=== PATIENT | male | born 1975 | race Caucasian/White ===

== ENCOUNTER 2019-05-09 04:13 | Inpatient (IN) | payer OTHER ==
[~2019-05-09] VITALS: Ht 180.3 cm; Wt 101.7 kg
[2019-05-09] MEDS ORDERED: CefTRIAXone 1 GM/DEXTROSE 50 ML IV ONE (04:30)
[2019-05-09] MEDS ORDERED: OCTREOTIDE ACETATE 100 MCG/ML VIAL IVP ONE (04:30)
[2019-05-09] MEDS ORDERED: PANTOPRAZOLE SODIUM 40 MG/VIAL IVP ONE (04:30)
[2019-05-09 04:41] LABS: GLUCOSE,POINT OF CARE 275 MG/DL (70-110)
[2019-05-09] MEDS ORDERED: FAMO20 PO (04:44)
[2019-05-09] MEDS ORDERED: FURO40I IM (04:44)
[2019-05-09] MEDS ORDERED: INSU100I26 IM (04:44)
[2019-05-09] MEDS ORDERED: GABA-531 PO (04:44)
[2019-05-09] MEDS ORDERED: PANT40TA25 PO (04:44)
[2019-05-09] MEDS ORDERED: FINA5TAB41 PO (04:44)
[2019-05-09] MEDS ORDERED: ATOR40TA28 PO (04:44)
[2019-05-09] MEDS ORDERED: METF-446 PO (04:44)
[2019-05-09] MEDS ORDERED: OMEP20 PO (04:44)
[2019-05-09] MEDS ORDERED: MIRT15 PO (04:44)
[2019-05-09] MEDS ORDERED: DOXE25 PO (04:44)
[2019-05-09] MEDS ORDERED: QUET200T PO (04:44)
[2019-05-09] MEDS ORDERED: RIVA20TA PO (04:44)
[2019-05-09] MEDS ORDERED: ACYC200C PO (04:44)
[2019-05-09] MEDS ORDERED: CETI10TA59 PO (04:44)
[2019-05-09] MEDS ORDERED: MELO-107 PO (04:44)
[2019-05-09] MEDS ORDERED: EMPA25TA PO (04:44)
[2019-05-09] MEDS ORDERED: VENL-68 PO (04:44)
[2019-05-09] MEDS ORDERED: TRAZ150 PO (04:44)
[2019-05-09] MEDS ORDERED: PROP20TA18 PO (04:44)
[2019-05-09 04:59] LABS: BASOPHILS % (AUTO) 1.2 % (0.0-2.0); EOSINOPHILS % (AUTO) 0.7 % (1.0-6.0); HEMATOCRIT 41.3 % (41-53); HEMOGLOBIN 13.6 g/dL (13.5-17.5); LYMPHOCYTES # (AUTO) 3.7 K/uL (1.0-4.8); LYMPHOCYTES % (AUTO) 40.2 % (22.0-44.0); MEAN CORPUSCULAR HEMOGLOBIN 30.5 pg (26.0-34.0); MEAN CORPUSCULAR VOLUME 93 fL (80-100); MONOCYTES # (AUTO) 0.9 K/uL (0.1-1.0); MONOCYTES % (AUTO) 9.7 % (2.0-9.0); NEUTROPHILS # (AUTO) 4.5 K/uL (1.8-7.7); NEUTROPHILS % (AUTO) 48.2 % (40.0-70.0); PLATELET COUNT (AUTO) 280 K/uL (150-450); RED BLOOD CELL COUNT(AUTO) 4.47 MIL/uL (4.50-5.90); RED CELL DISTRIBUTION WIDTH 20.2 % (11.5-14.5)
[2019-05-09] MEDS ORDERED: PANTOPRAZOLE SODIUM 80 MG in SODIUM CHLORIDE 0.9% 100 ML IV SCH (05:00)
[2019-05-09] MEDS ORDERED: OCTREOTIDE ACETATE 500 MCG in DEXTROSE 5%-WATER 97.5 ML IV SCH (05:00)
[2019-05-09 05:08] LABS: APPEARANCE,URINE CLEAR (CLEAR); BILIRUBIN,URINE NEGATIVE (NEGATIVE); GLUCOSE, URINE (UA) >=1000 mg/dL (NEGATIVE); KETONES,URINE TRACE mg/dL (NEGATIVE); LEUKOCYTE ESTERASE ,URINE NEGATIVE (NEGATIVE); NITRATE,URINE NEGATIVE (NEGATIVE); OCCULT BLOOD,URINE NEGATIVE (NEGATIVE); PROTEIN,URINE NEGATIVE (NEGATIVE); UROBILINOGEN,URINE 0.2 mg/dL (<=1.0)
[2019-05-09 05:14] LABS: AMPHET/METH SCREEN,URINE NEGATIVE (NEGATIVE); BARBITURATE SCREEN, URINE NEGATIVE (NEGATIVE); BENZODIAZEPINES SCREEN,URINE NEGATIVE (NEGATIVE); CANNABINOID SCREEN,URINE NEGATIVE (NEGATIVE); COCAINE SCREEN,URINE NEGATIVE (NEGATIVE); METHADONE SCREEN, URINE NEGATIVE (NEGATIVE); OPIATE SCREEN,URINE NEGATIVE (NEGATIVE)
[2019-05-09 05:16] LABS: PHENCYCLIDINE SCREEN,URINE NEGATIVE (NEGATIVE)
[2019-05-09 05:21] LABS: PROTHROMBIN TIME 10.8 SEC (9.4-11.6)
[2019-05-09 05:22] LABS: CALCIUM, TOTAL 8.7 mg/dL (8.8-10.5); CREATININE 1.3 mg/dL (0.60-1.30); POTASSIUM 4.2 mmol/L (3.5-5.1)
[2019-05-09 05:25] LABS: BACTERIA,URINE None Seen /HPF (None Seen); RBC,URINE None Seen /HPF (0-2); SQUAMOUS EPITHELIAL CELL,UR Few /LPF (None Seen); WBC,URINE 0-2 /HPF (0-5)
[2019-05-09 05:28] LABS: ALBUMIN 3.4 g/dL (3.4-5.0); BILIRUBIN,TOTAL 0.5 mg/dL (0.1-1.0); TOTAL PROTEIN, SERUM 7.6 g/dL (6.4-8.2)
[2019-05-09] MEDS ORDERED: IOVERSOL 350 MG/ML 100 ML VIAL ONE (05:40)
[2019-05-09] MEDS ORDERED: SODIUM CHLORIDE 0.9% 1,000 ML IV ONE (05:45)
[2019-05-09] MEDS ORDERED: MORPHINE SULFATE 2 MG/ML SYRINGE IVP ONE (06:00)
[2019-05-09] MEDS ORDERED: MetroNIDAZOLE 500 MG/NACL 100 ML IV ONE (09:15)
[2019-05-09] MEDS ORDERED: ONDANSETRON HCL 4 MG/2 ML VIAL IVP PRN ×2 (09:45→13:15)
[2019-05-09] MEDS ORDERED: 0.9% SODIUM CHLORIDE 10 ML SYRINGE IVP PRN (09:45)
[2019-05-09] MEDS ORDERED: ACETAMINOPHEN 325 MG TABLET PO PRN ×2 (09:45→13:15)
[2019-05-09 11:00] VITALS: BP 119/70
[2019-05-09] MEDS ORDERED: MAGNESIUM HYDROXIDE SUSPENSION 30 ML UDCUP PO PRN (13:15)
[2019-05-09] MEDS ORDERED: BISACODYL 10 MG RECTAL RECTAL SUPPOSITORY PR PRN (13:15)
[2019-05-09] MEDS ORDERED: DEXTROSE 50%-WATER 25 GM/50 ML SYRINGE IVP PRN (13:15)
[2019-05-09] MEDS ORDERED: MAGNESIUM SULFATE 2 GM, MVI, ADULT NO.1 WITH VIT K 10 ML, THIAMINE HCL 100 MG, FOLIC AC... IV ONE ×5 (13:15)
[2019-05-09] MEDS: MORPHINE SULFATE 2 MG/ML SYRINGE IVP PRN ×2 (14:14→20:22)
[2019-05-09] MEDS: PANTOPRAZOLE SODIUM 80 MG in SODIUM CHLORIDE 0.9% 100 ML IV SCH (15:13)
[2019-05-09 16:15] VITALS: BP 120/86
[2019-05-09] MEDS: PROPRANOLOL HCL 20 MG TABLET PO SCH ×2 (16:54→20:22)
[2019-05-09] MEDS: INSULIN LISPRO 100 UNITS/ML SQ PRN (17:59)
[2019-05-09 19:33] VITALS: BP 130/88
[2019-05-09] MEDS: GABAPENTIN 300 MG CAPSULE PO SCH (20:22)
[2019-05-09] MEDS: DOCUSATE SODIUM 100 MG CAPSULE PO SCH (20:23)
[2019-05-09] MEDS: ZOLPIDEM TARTRATE 5 MG TABLET PO PRN (21:39)
[2019-05-09 23:46] VITALS: BP 126/89
[2019-05-10] MEDS: HYDROCODONE/ACETAMINOPHEN 5-325 MG TABLET PO PRN ×3 (00:29→21:04)
[2019-05-10] MEDS: PANTOPRAZOLE SODIUM 80 MG in SODIUM CHLORIDE 0.9% 100 ML IV SCH (03:02)
[2019-05-10 04:26] VITALS: BP 115/77
[2019-05-10 04:31] LABS: GLUCOMETER DEV NAME(LOC) 5S.1; GLUCOSE,POINT OF CARE 182 MG/DL (70-110)
[2019-05-10 04:31] LABS: GLUCOMETER DEV NAME(LOC) 5S.1; GLUCOSE,POINT OF CARE 173 MG/DL (70-110)
[2019-05-10] MEDS ORDERED: SODIUM CHLORIDE 0.9% 0 ML IV ONE (06:06)
[2019-05-10 07:31] VITALS: BP 126/78
[2019-05-10] MEDS: PROPRANOLOL HCL 20 MG TABLET PO SCH (07:50)
[2019-05-10] MEDS: GABAPENTIN 300 MG CAPSULE PO SCH ×2 (08:28→21:04)
[2019-05-10] MEDS: MELOXICAM 7.5 MG TABLET PO SCH (08:28)
[2019-05-10] MEDS: PANTOPRAZOLE SODIUM 40 MG DR TABLET PO SCH (08:28)
[2019-05-10] MEDS: FINASTERIDE 5 MG TABLET PO SCH (08:28)
[2019-05-10] MEDS: ATORVASTATIN CALCIUM 40 MG TABLET PO SCH (08:28)
[2019-05-10] MEDS: DOCUSATE SODIUM 100 MG CAPSULE PO SCH ×2 (08:30→21:04)
[2019-05-10] MEDS ORDERED: QUEtiapine FUMARATE 200 MG TABLET PO SCH (09:00)
[2019-05-10 09:24] LABS: EOSINOPHILS % (AUTO) 3.9 % (1.0-6.0); HEMATOCRIT 36.8 % (41-53); HEMOGLOBIN 12.1 g/dL (13.5-17.5); LYMPHOCYTES # (AUTO) 2.6 K/uL (1.0-4.8); LYMPHOCYTES % (AUTO) 31.7 % (22.0-44.0); MEAN CORPUSCULAR HEMOGLOBIN 30.4 pg (26.0-34.0); MEAN CORPUSCULAR HGB CONC 32.9 G/dL (31.0-37.0); MEAN CORPUSCULAR VOLUME 92 fL (80-100); MONOCYTES % (AUTO) 12.7 % (2.0-9.0); NEUTROPHILS # (AUTO) 4.2 K/uL (1.8-7.7); NEUTROPHILS % (AUTO) 50.7 % (40.0-70.0); PLATELET COUNT (AUTO) 203 K/uL (150-450); RED BLOOD CELL COUNT(AUTO) 3.98 MIL/uL (4.50-5.90); RED CELL DISTRIBUTION WIDTH 19.9 % (11.5-14.5)
[2019-05-10 09:40] LABS: ALANINE AMINOTRANSFERASE 12 U/L (12-78); ALBUMIN 2.6 g/dL (3.4-5.0); ALKALINE PHOSPHATASE 56 U/L (46-116); ANION GAP 7 mmol/L (8-16); ASPARTATE AMINOTRANSFERASE 19 U/L (15-37); BILIRUBIN,TOTAL 1.3 mg/dL (0.1-1.0); CALCIUM, TOTAL 7.6 mg/dL (8.8-10.5); CARBON DIOXIDE 26 mmol/L (22-29); CHLORIDE 105 mmol/L (98-107); CREATININE 0.81 mg/dL (0.60-1.30); GLOMERULAR FILTR. RATE CALC > 60 mL/min (>60); GLUCOSE,RANDOM 175 mg/dL (70-110); POTASSIUM 3.5 mmol/L (3.5-5.1); SODIUM SERUM 138 mmol/L (136-145); TOTAL PROTEIN, SERUM 6.1 g/dL (6.4-8.2); UREA NITROGEN, BLOOD 8 mg/dL (7-18)
[2019-05-10 11:09] VITALS: BP 128/79
[2019-05-10 11:47] LABS: GLUCOMETER DEV NAME(LOC) 5N.1; GLUCOSE,POINT OF CARE 154 MG/DL (70-110)
[2019-05-10 11:47] LABS: GLUCOMETER DEV NAME(LOC) 5N.1; GLUCOSE,POINT OF CARE 179 MG/DL (70-110)
[2019-05-10] MEDS: INSULIN LISPRO 100 UNITS/ML SQ PRN ×3 (12:31→21:14)
[2019-05-10] MEDS: MORPHINE SULFATE 2 MG/ML SYRINGE IVP PRN ×3 (12:37→22:57)
[2019-05-10 13:20] LABS: THYROID STIMULATING HORMONE 0.42 uIU/mL (0.36-3.74)
[2019-05-10 15:22] VITALS: BP 112/81
[2019-05-10 18:06] LABS: GLUCOMETER DEV NAME(LOC) 5S.1; GLUCOSE,POINT OF CARE 240 MG/DL (70-110)
[2019-05-10 20:30] VITALS: BP 106/79
[2019-05-10] MEDS: ZOLPIDEM TARTRATE 5 MG TABLET PO PRN (23:41)
[2019-05-11 01:04] VITALS: BP 106/69
[2019-05-11 04:30] VITALS: BP 107/79
[2019-05-11] MEDS: INSULIN LISPRO 100 UNITS/ML SQ PRN ×2 (06:44→12:11)
[2019-05-11 07:40] VITALS: BP 125/77
[2019-05-11 08:32] LABS: GLUCOMETER DEV NAME(LOC) 5S.2A; GLUCOSE,POINT OF CARE 362 MG/DL (70-110)
[2019-05-11] MEDS ORDERED: QUEtiapine FUMARATE 100 MG TABLET PO SCH (09:00)
[2019-05-11] MEDS: PANTOPRAZOLE SODIUM 40 MG DR TABLET PO SCH (10:04)
[2019-05-11] MEDS: DOCUSATE SODIUM 100 MG CAPSULE PO SCH (10:04)
[2019-05-11] MEDS: MELOXICAM 7.5 MG TABLET PO SCH (10:04)
[2019-05-11] MEDS: GABAPENTIN 300 MG CAPSULE PO SCH (10:04)
[2019-05-11] MEDS: FINASTERIDE 5 MG TABLET PO SCH (10:04)
[2019-05-11] MEDS: MORPHINE SULFATE 2 MG/ML SYRINGE IVP PRN ×2 (10:05→14:36)
[2019-05-11] MEDS: ATORVASTATIN CALCIUM 40 MG TABLET PO SCH (10:25)
[2019-05-11 11:02] VITALS: BP 120/82
[2019-05-11] MEDS: HYDROCODONE/ACETAMINOPHEN 5-325 MG TABLET PO PRN (12:04)
[2019-05-11] MEDS ORDERED: FURO40TA5 PO (12:07)
[2019-05-11] MEDS ORDERED: OMEP20 PO (12:32)
[2019-05-11] MEDS ORDERED: HYDR2 PO (12:32)
[2019-05-11 16:56] LABS: GLUCOMETER DEV NAME(LOC) 5N.1; GLUCOSE,POINT OF CARE 385 MG/DL (70-110)
[2019-05-11] MEDS ORDERED: RIVAROXABAN 20 MG TABLET PO SCH (18:00)
[2019-05-11] MEDS ORDERED: MetFORMIN HCL 500 MG TABLET PO SCH (18:00)
[2019-05-11 20:11] LABS: GLUCOMETER DEV NAME(LOC) 5S.2A; GLUCOSE,POINT OF CARE 199 MG/DL (70-110)
[2019-05-11] MEDS ORDERED: ACYCLOVIR 200 MG CAPSULE PO SCH (21:00)
[2019-05-11] MEDS ORDERED: MIRTAZAPINE 15 MG TABLET PO SCH (21:00)
[2019-05-11] MEDS ORDERED: FAMOTIDINE 20 MG TABLET PO SCH (21:00)
[2019-05-12] MEDS ORDERED: OMEPRAZOLE 20 MG CAPSULE PO SCH (09:00)
[2019-05-12] MEDS ORDERED: CETIRIZINE HCL 10 MG TABLET PO SCH (09:00)
[2019-05-12] MEDS ORDERED: PANTOPRAZOLE SODIUM 40 MG DR TABLET PO SCH (09:00)
[2019-05-12] MEDS ORDERED: VENLAFAXINE HCL 150 MG ER CAPSULE PO SCH (09:00)
[2019-05-14 13:21] LABS: GLUCOMETER DEV NAME(LOC) 5N.1; GLUCOSE,POINT OF CARE 185 MG/DL (70-110)
== END 2019-05-11 15:30 | disposition home or self-care (01) | DRG 241 ==
LOC: EMS 04:13 → 5N 10:25 → 5S 05-10 16:50
PROVIDERS: ADMIT Hospitalist; ATTEND Hospitalist
DX: K29.20 Alcoholic gastritis without bleeding (principal); K86.1 Other chronic pancreatitis; E11.9 Type 2 diabetes mellitus without complications; F10.129 Alcohol abuse with intoxication, unspecified; K27.9 Peptic ulcer, site unspecified, unspecified as acute or chronic, without hemorrhage or perforation; E78.5 Hyperlipidemia, unspecified; K21.9 Gastro-esophageal reflux disease without esophagitis; K52.9 Noninfective gastroenteritis and colitis, unspecified; N40.0 Benign prostatic hyperplasia without lower urinary tract symptoms; Z86.718 Personal history of other venous thrombosis and embolism; Z90.81 Acquired absence of spleen; G89.29 Other chronic pain; Z88.8 Allergy status to other drugs, medicaments and biological substances
CPT/HCPCS: 74177; 82270; 82271; 84443; 86850; 86900; 86901; 93005; 93306; 93970; C9113; G0378; G0480; J0696; J2270; J2354; J3411; J3475; J3490; J7030; J7050; J7060